=== PATIENT | female | born 1955 | race Caucasian/White ===

== ENCOUNTER 2018-04-26 10:08 | Observation (INO) ==
[2018-04-26 11:35] LABS: Hematocrit 42.1 % (35.0-46.0); Hemoglobin 14.5 gm/dL (11.6-15.3); Mean Corpuscular HGB Conc 34.3 % (32.0-36.0); Mean Corpuscular Hemoglobin 29.8 pg (27.0-34.0); Mean Corpuscular Volume 86.6 fL (80.0-100.0); Mean Platelet Volume 9.8 fL (7.0-11.0); Platelet Count 182 th/mm3 (150-450); Red Blood Count 4.86 mil/mm3 (4.00-5.30); Red Cell Distribution Width 14.1 % (11.6-17.2)
[2018-04-26 11:46] LABS: Chloride 106 meq/L (98-107); Potassium 4.5 meq/L (3.5-5.1); Sodium 141 meq/L (136-145)
[2018-04-26 11:49] LABS: Albumin 3.9 g/dL (3.4-5.0); Anion Gap 7 meq/L (5-15); Calcium 8.8 mg/dL (8.5-10.1); Carbon Dioxide 27.7 meq/L (21.0-32.0); Glucose,Random 139 mg/dL (74-106); Magnesium 2.2 mg/dL (1.5-2.5)
[2018-04-26 11:50] LABS: Blood Urea Nitrogen 14 mg/dL (7-18)
[2018-04-26 11:52] LABS: Alanine Aminotransferase 22 U/L (10-53); Aspartate Aminotransferase 22 U/L (15-37)
[2018-04-26 11:53] LABS: Glomerular Filtration Rate 56 mL/min (>89); Phosphorus 4.3 mg/dL (2.5-4.9)
[2018-04-26 11:54] LABS: Total Protein 6.7 g/dL (6.4-8.2)
[2018-04-26 11:55] LABS: Alkaline Phosphatase 75 U/L (45-117)
--- NOTE | 2018-04-26 12:00 | ED ---
HPI General Chief complaint: Dizziness Stated complaint: General weakness x 3 days Time Seen by Provider: 04/26/18 11:13 Source: patient, family, RN notes reviewed and old records reviewed Mode of arrival: ambulatory History of Present Illness HPI narrative: 63yF presenting with dyspnea, near-syncope, and generalized weakness/ fatigue. The patient has a history of breast CA and chemotherapy- induced CHF (reported EF <20%, s/p defibrillator placement 3 months ago); she [place] requiring thoracentesis. She says that over the past 2 days she's been having dyspnea ( worse than her baseline dyspnea) on both exertion and at rest, generalized weakness/ fatigue, feeling "like I'm going to pass out" (unrelated to position or activity), and intermittent palpitations. Also admits to tactile fevers/ chills but denies chest pain, vomiting, diarrhea, dysuria, or rash. Last chemo/ radiation in December or January, not currently on either treatment. Related Data Home Medications Medication Instructions Recorded Confirmed acetaminophen-codeine 1 tab PO Q6H PRN 02/12/18 04/26/18 [Tylenol-Codeine #3] aspirin 81 mg PO DAILY 02/12/18 04/26/18 potassium chloride 10 meq PO DAILY PRN 02/12/18 04/26/18 ranitidine HCl See Label Instructions .ROUTE 02/12/18 04/26/18 .COMPLEX PRN carvedilol 6.25 mg PO BID 04/06/18 04/26/18 cholecalciferol (vitamin D3) 2,000 unit PO DAILY 04/06/18 04/26/18 furosemide [Lasix] 20 mg PO BID PRN 04/06/18 04/26/18 sacubitril-valsartan [Entresto] 1 tab PO BID 04/06/18 04/26/18 docusate sodium [Colace] 100 mg PO DAILY 04/26/18 04/26/18 multivitamin 1 tab PO DAILY 04/26/18 04/26/18 Allergies Allergy/AdvReac Type Severity Reaction Status Date / Time cefaclor Allergy Severe CAN'T Verified 02/12/18 23:25 BREATHE Review of Systems ROS: all other systems reviewed are negative Constitutional Reports chills, Reports difficulty sleeping, Reports fatigue and Reports fever(s ) Eyes Denies blurry vision ENT Denies nasal congestion Cardiovascular Denies chest pain and Reports dyspnea Respiratory Reports dyspnea Gastrointestinal Denies nausea Genitourinary Denies dysuria Musculoskeletal Denies back pain Neurologic Denies confusion Psychiatric Denies confusion [facility] History History Provided By: Patient Medical History Medical History Port-A-Cath in place (Acute) History of chemotherapy (Acute) Hx of breast cancer (Acute) CHF (congestive heart failure) (Acute) Social History Social History Substance History: No History of Abuse Second Hand Smoke Exposure: No Smoking Status: Former smoker Tobacco Type: Cigarettes How Often Do You Have a Drink Containing Alcohol: Monthly or less Recent Travel in [facility] within the Last 8 Weeks: No Recent Out of Country Travel within the Last 8 Weeks: No Immunization History Tetanus Immunization: Unsure Hx Influenza Vaccine This Season: No Exam Const General: no acute distress and frail appearing [place]ENUT Head: normocephalic and atraumatic Face and sinus: normal facial exam Eyes General: appearance normal, both eyes and all related structures Pupils: PERRL Chest Other: Defibrillator present in right upper chest, port present in left upper chest Resp Effort & Inspection: normal respiratory effort Other: Lungs clear to auscultation bilaterally, no wheezing or rhonchi Cardio Rate: regular rate Rhythm: regular rhythm GI Inspection: non-distended Palpation: soft and nontender Skin General: no rashes or lesions noted Neuro General: alert, awake, oriented x3 and no focal motor deficits Extrem Other: Trace lower extremity edema bilaterally Psych Affect: normal affect Course Initial Documented Vital Signs Temperature 98.4 F 04/26/18 10:28 Pulse Rate 86 04/26/18 10:28 Respiratory Rate 20 04/26/18 10:28 Blood Pressure 117/56 L 04/26/18 10:28 Pulse Oximetry 98 04/26/18 10:28 Last Documented Vital Signs Temperature 98.4 F 04/26/18 10:28 Pulse Rate 77 04/26/18 11:23 Respiratory Rate 20 04/26/18 10:28 Blood Pressure 117/56 L 04/26/18 10:28 Pulse Oximetry 96 04/26/18 11:23 Medical Decision Making MDM Narrative Medical decision making narrative: Assessment: 63yF presenting with dyspnea, palpitations, near-syncope, weakness Plan: EKG and monitor CXR Labs Addendum: Patient's trop negative x 1, BNP 670, no effusions seen on CXR, labs otherwise unremarkable. Patient continues to have dyspnea and palpitations at rest while in the ED. She will need cardiac monitoring and further workup; she understands and agrees with plan. Case discussed with Dr. Eid of [facility]. Medical Screen Exam Complete: Yes Emergency Medical Condition: Yes Differential Diagnosis Differential Diagnosis: Differential diagnosis includes, but is not limited to: CHF exacerbation, electrolyte abnormality, dehydration, pleural effusion, pulmonary edema, arrhythmia Medical Records Medical records reviewed: Yes I reviewed the patient's medical records. Lab Data Lab results reviewed: Yes I reviewed the patient's lab results. Result diagrams: 04/26/18 11:15 04/26/18 11:15 Lab Results 04/26/18 04/26/18 04/26/18 Range/Units 11:15 11:15 11:15 CBC w Diff Slide review pending WBC 10.0 (4.0-11.0) th/mm3 RBC 4.86 (4.00-5.30) mil/mm3 Hgb 14.5 (11.6-15.3) gm/dL Hct 42.1 (35.0-46.0) % MCV 86.6 (80.0-100.0) fL MCH 29.8 (27.0-34.0) pg MCHC 34.3 (32.0-36.0) % RDW 14.1 (11.6-17.2) % Plt Count 182 (150-450) th/mm3 MPV 9.8 (7.0-11.0) fL WBC Differential Manual diff final Seg Neuts % (Manual) 77 H (16-70) % Lymphocytes % (Manual) 16 (9-44) % Monocytes % (Manual) 5 (0-8) % Eosinophils % (Manual) 2 (0-4) % Abs Neuts (Manual) 7.7 (1.8-7.7) th/mm3 Differential Comment . Platelet Estimate Normal (Normal) Platelet Morphology Normal (Normal) Sodium 141 (136-145) meq/L Potassium 4.5 (3.5-5.1) meq/L Chloride 106 (98-107) meq/L Carbon Dioxide 27.7 (21.0-32.0) meq/L Anion Gap 7 (5-15) meq/L BUN 14 (7-18) mg/dL Creatinine 1.00 (0.50-1.00) mg/dL Estimated GFR 56 L (>89) mL/min Random Glucose 139 H (74-106) mg/dL Calcium 8.8 (8.5-10.1) mg/dL Phosphorus 4.3 (2.5-4.9) mg/dL Magnesium 2.2 (1.5-2.5) mg/dL Total Bilirubin 1.4 H (0.2-1.0) mg/dL AST 22 (15-37) U/L ALT 22 (10-53) U/L Alkaline Phosphatase 75 (45-117) U/L Troponin I Less than 0.02 L (0.02-0.05) ng/mL B-Natriuretic Peptide 677 H (0-100) pg/mL Total Protein 6.7 (6.4-8.2) g/dL Albumin 3.9 (3.4-5.0) g/dL Imaging Data Radiologist's impression: Chest X-Ray 04/26/18 11:23 CONCLUSION: Negative chest for acute process. ECG Data Attestation: I personally reviewed and interpreted this ECG as follows: Interpretation: Rate: 75 BPM Rhythm: Sinus [place]: Normal Intervals: Normal intervals, no blocks, QTc 413 ms Q waves: III, V2 T waves: Flattened in aVL, III, aVF, V5-V6 ST segments: No elevations or depressions Impression: Non-specific EKG, no changes as compared to EKG from 02/12/2018. Discharge Plan Discharge Disposition Patient Disposition: 30 Still Patient Discharge Condition Condition: Stable Discharge Details Diagnosis: Near syncope, Palpitations, Dyspnea Physicians Team ED Provider: Zita Jimenez Primary Care Provider: Josué Garcia Rxs /Orders / Referrals /Forms Prescriptions: No Action furosemide [Lasix] 20 mg tablet 20 mg PO BID PRN (Reason: Edema) RF: 0 carvedilol 6.25 mg Tablet 6.25 mg PO BID RF: 0 cholecalciferol (vitamin D3) 2,000 unit Tablet 2,000 unit PO DAILY RF: 0 sacubitril-valsartan [Entresto] 24-26 mg Tablet 1 tab PO BID RF: 0 potassium chloride 10 mEq Tablet Extended Release 10 meq PO DAILY PRN (Reason: Edema) RF: 0 acetaminophen-codeine [Tylenol-Codeine #3] 300-30 mg Tablet 1 tab PO Q6H PRN (Reason: Acute Pain) RF: 0 aspirin 81 mg Tablet,Chewable 81 mg PO DAILY RF: 0 ranitidine HCl 150 mg Capsule See Label Instructions .ROUTE .COMPLEX PRN (Reason: gerd) RF: 0 multivitamin Tablet 1 tab PO DAILY RF: 0 docusate sodium [Colace] 100 mg Capsule 100 mg PO DAILY RF: 0 Status ED Status: With Doctor
--- NOTE | 2018-04-26 12:05 | XR ---
EXAM DATE: 04/26/2018 11:47 AM EDT AGE/SEX: 63 years / Female INDICATIONS: . Short of breath, cough CLINICAL DATA: This is the patient's initial encounter. Patient reports that signs and symptoms have been present for 2 days and indicates a pain score of 0/10. MEDICAL/SURGICAL HISTORY: Carcinoma, breast. Hypertension. . Pacemaker. Infusaport COMPARISON: HPO, CHEST 1V SINGLE AP, 02/12/2018. . FINDINGS: Pacemaker in good position. [id number] in good position. Lungs are clear. The heart and pulmonary vascularity are normal. The portion of the bony skeleton visualized is unremarkable. CONCLUSION: Negative chest for acute process. Electronically signed by: Siddhartha Ernst MD 04/26/2018 12:04 PM EDT
[2018-04-26 12:12] LABS: Eosinophils 2 % (0-4); Lymphocytes 16 % (9-44); Monocytes 5 % (0-8); Platelet Estimate Normal (Normal); Platelet Morphology Normal (Normal)
[2018-04-26] MEDS ORDERED: Acetaminophen/Codeine 300/30 MG Tablet PO ONE (13:09)
[2018-04-26] MEDS ORDERED: Acetaminophen 325 MG Tablet PO PRN (13:26)
[2018-04-26] MEDS ORDERED: Bisacodyl 10 MG Supp RECTAL PRN (13:26)
[2018-04-26] MEDS ORDERED: Famotidine 20 MG Tablet PO PRN (13:45)
[2018-04-26] MEDS ORDERED: Enoxaparin Inj 40 MG/0.4 ML Syringe SQ SCH (14:00)
[2018-04-26] MEDS ORDERED: Sod Chloride 0.9% Inj 1,000 ML IV.CONT SCH (14:00)
[2018-04-26 14:13] LABS: Bilirubin,Urine Negative (Negative); Clarity,Urine Clear (Clear); Color,Urine Yellow (Yellw/Straw); Glucose,Urine (UA) Negative (Negative); Leukocyte Esterase,Urine Negative (Negative); Nitrite,Urine Negative (Negative); Specific Gravity,Urine Less/Equal 1.005 (1.002-1.035); Urobilinogen,Urine 0.2 mg/dL (Less than 2)
[2018-04-26 14:24] LABS: Squamous Epithelial Cell,Urine 0-5 /hpf (0-5); WBC,Urine 0-5 /hpf (0-5)
--- NOTE | 2018-04-26 14:36 | ECG ---
Date Performed: 04/26/2018 Time Performed: 10:43:36 PTAGE: 63 years EKG: Sinus rhythm POSSIBLE LEFT ATRIAL ENLARGEMENT NONSPECIFIC T-WAVE ABNORMALITY BORDERLINE ECG Since the PREVIOUS TRACING , no significant change noted PREVIOUS TRACIN02/12/2018 22.14 DOCTOR: Marcie Espino Interpretating Date/Time 04/26/2018 14:31:15
--- NOTE | 2018-04-26 15:23 | P.HP ---
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 She presents to the emergency room because of near syncope. Started 2 days ago not feeling great saying she was not in tip top shape. Today she felt shaky, weak and not feeling well. States she was dizzy and almost passed out. She also had episodes of feeling hot then feeling cold. Also felt that she was more short of breath than usual. Occasionally she will have whitish phlegm. No recent medication changes she has been on Entresto and Coreg for the past 3 weeks. She has been using Lasix 3-4 times a week for the past 2 weeks to prevent her from weight gain. No UTI symptoms. Chest x-ray interpreted by me with no acute cardiopulmonary disease. Urinalysis unremarkable. EKG interpreted by me with SR nonspecific T-wave abnormality. When I walked into the room, patient was in the process of getting orthostatic vital signs and patient complaining of mild dizziness. Her blood pressure was stable but heart rate increased by at least 20 points. All other systems reviewed negative. Review of Systems All other systems reviewed negative except as stated in HPI PMFSH - History History Provided By: Patient - Medical History Medical History: Medical History (Last Updated 04/26/18 @ 15:49 by Lyndon Eid MD) Port-A-Cath in place (Acute) History of chemotherapy (Acute) Hx of breast cancer (Acute) CHF (congestive heart failure) (Acute) CVA (cerebral vascular accident) Diabetes HLD (hyperlipidemia) HTN (hypertension) - Surgical History Surgical History: Surgical History (Last Updated 04/26/18 @ 15:51 by Lyndon Eid MD) History of lumpectomy of right breast - Family History Family History: Family History (Last Updated 04/26/18 @ 15:51 by Lyndon Eid MD) Other No pertinent family history - Tobacco History Second Hand Smoke Exposure: No Smoking Status: Former smoker Tobacco Type: Cigarettes - Alcohol History How Often Do You Have a Drink Containing Alcohol: Monthly or less - Substance Use History Substance History: No History of Abuse - Travel History Recent Travel in the [place] Within the Last 8 Weeks: No Recent Travel Out of the Country Within the Last 8 Weeks: No - Immunization History Tetanus Immunization: Unsure Hx Influenza Vaccine This Season: No Medications and Allergies Active Medications: Active Medications Acetaminophen (Tylenol) 650 mg PO Q4H PRN PRN Reason: Temp > 100.4 Acetaminophen/Codeine Phosphate (Tylenol W/Cod #3) 1 tab PO Q6H PRN PRN Reason: Acute Pain Al Hydroxide/Mg Hydroxide (Milk Of Magnesia Liq) 30 ml PO Q12H PRN PRN Reason: Mild Constipation Aspirin (Aspirin Chew) 81 mg PO DAILY MELANY Bisacodyl (Dulcolax Supp) 10 mg RECTAL DAILY PRN PRN Reason: SEVERE CONSITIPATION Docusate Sodium (Colace) 100 mg PO DAILY MELANY Enoxaparin Sodium (Lovenox Inj) 40 mg SQ Q24H MELANY Famotidine (Pepcid) 20 mg PO BID PRN PRN Reason: HEARTBURN Sodium Chloride (Ns Inj) 1,000 mls @ 30 mls/hr IV.CONT .Q24H MELANY Last Infusion: 04/26/18 14:33 Dose: 30 mls/hr Lactulose (Lactulose Liq) 30 ml PO DAILY PRN PRN Reason: SEVERE CONSITIPATION Ondansetron HCl (Zofran Inj) 4 mg IV.PUSH Q6H PRN PRN Reason: NAUSEA OR VOMITING Sennosides (Senokot) 17.2 mg PO Q12H PRN PRN Reason: Moderate Constipation Sodium Chloride (Ns Flush) 2 ml IV.FLUSH UNSCH PRN PRN Reason: FLUSH AFTER USING IV ACCESS Allergies Allergy/AdvReac Type Severity Reaction Status Date / Time cefaclor Allergy Severe CAN'T Verified 02/12/18 23:25 BREATHE Home Medications Medication Instructions Recorded Confirmed Type acetaminophen-codeine 1 tab PO Q6H PRN 02/12/18 04/26/18 History [Tylenol-Codeine #3] aspirin 81 mg PO DAILY 02/12/18 04/26/18 History potassium chloride 10 meq PO DAILY PRN 02/12/18 04/26/18 History ranitidine HCl See Label Instructions .ROUTE 02/12/18 04/26/18 History .COMPLEX PRN carvedilol 6.25 mg PO BID 04/06/18 04/26/18 History cholecalciferol (vitamin D3) 2,000 unit PO DAILY 04/06/18 04/26/18 History furosemide [Lasix] 20 mg PO BID PRN 04/06/18 04/26/18 History sacubitril-valsartan [Entresto] 1 tab PO BID 04/06/18 04/26/18 History docusate sodium [Colace] 100 mg PO DAILY 04/26/18 04/26/18 History multivitamin 1 tab PO DAILY 04/26/18 04/26/18 History Exam Vital signs: Vital Signs 04/26/18 10:28 04/26/18 11:23 Temperature 98.4 F Pulse Rate 86 77 Respiratory Rate 20 Blood Pressure 117/56 L Pulse Oximetry 98 96 Intake & Output 04/25/18 04/26/18 04/26/18 18:59 06:59 18:59 Weight 57.6 kg Narrative: GENERAL: Well-developed, well-nourished in no distress SKIN: Warm and dry. HEAD: Atraumatic. Normocephalic. EYES: Pupils equal and round. No scleral icterus. No injection or drainage. ENT: No nasal bleeding or discharge. Mucous membranes pink and moist. NECK: Trachea midline. No JVD. CARDIOVASCULAR: Regular rate and rhythm. ICD on the right, port on the left chest with no signs of infection RESPIRATORY: No accessory muscle use. Clear to auscultation. Breath sounds equal bilaterally. GASTROINTESTINAL: Abdomen soft, non-tender, nondistended. MUSCULOSKELETAL: Extremities without clubbing, cyanosis but with bilateral lower extremity trace edema. No obvious deformities. NEUROLOGICAL: Awake and alert. No obvious cranial nerve deficits. Motor grossly within normal limits. Five out of 5 muscle strength in the arms and legs. Normal speech. PSYCHIATRIC: Appropriate mood and affect; insight and judgment normal. Results - Labs CBC & Chem 7: 04/26/18 11:15 04/26/18 11:15 Labs: Laboratory Results - last 24 hr 04/26/18 04/26/18 04/26/18 11:15 11:15 11:15 CBC w Diff Slide review pending WBC 10.0 RBC 4.86 Hgb 14.5 Hct 42.1 MCV 86.6 MCH 29.8 MCHC 34.3 RDW 14.1 Plt Count 182 MPV 9.8 WBC Differential Manual diff final Seg Neuts % (Manual) 77 H Lymphocytes % (Manual) 16 Monocytes % (Manual) 5 Eosinophils % (Manual) 2 Abs Neuts (Manual) 7.7 Differential Comment . Platelet Estimate Normal Platelet Morphology Normal Sodium 141 Potassium 4.5 Chloride 106 Carbon Dioxide 27.7 Anion Gap 7 BUN 14 Creatinine 1.00 Estimated GFR 56 L Random Glucose 139 H Calcium 8.8 Phosphorus 4.3 Magnesium 2.2 Total Bilirubin 1.4 H AST 22 ALT 22 Alkaline Phosphatase 75 Troponin I Less than 0.02 L B-Natriuretic Peptide 677 H Total Protein 6.7 Albumin 3.9 Ur Collection Type Urine Color Urine Clarity Urine pH Ur Specific [place] Urine Protein Urine Glucose (UA) Urine Ketones Urine Occult Blood Urine Nitrate Urine Bilirubin Urine Urobilinogen Ur Leukocyte Esterase Urine WBC Ur Squamous Epith Cells Micro UA Comment Ur Microscopic Review Urine Culture Comments 04/26/18 04/26/18 13:45 14:25 CBC w Diff WBC RBC Hgb Hct MCV MCH MCHC RDW Plt Count MPV WBC Differential Seg Neuts % (Manual) Lymphocytes % (Manual) Monocytes % (Manual) Eosinophils % (Manual) Abs Neuts (Manual) Differential Comment Platelet Estimate Platelet Morphology Sodium Potassium Chloride Carbon Dioxide Anion Gap BUN Creatinine Estimated GFR Random Glucose Calcium Phosphorus Magnesium Total Bilirubin AST ALT Alkaline Phosphatase Troponin I Less than 0.02 L B-Natriuretic Peptide Total Protein Albumin Ur Collection Type Clean catch Urine Color Yellow Urine Clarity Clear Urine pH 7.0 Ur Specific [place] Less/equal 1.005 Urine Protein Negative Urine Glucose (UA) Negative Urine Ketones Negative Urine Occult Blood Negative Urine Nitrate Negative Urine Bilirubin Negative Urine Urobilinogen 0.2 Ur Leukocyte Esterase Negative Urine WBC 0-5 Ur Squamous Epith Cells 0-5 Micro UA Comment Culture not ind Ur Microscopic Review Microscopic reviewed Urine Culture Comments Culture not ind - Imaging Impressions Chest X-Ray 04/26/18 11:23 CONCLUSION: Negative chest for acute process. Caprini VTE Risk Assessment Caprini VTE Risk Assessment: Moderate/High Risk (score >= 2) Caprini Risk Assessment Model: Point Value = 1 Point Value = 2 Point Value = 3 Point Value = 5 Age 41-60 Minor surgery BMI > 25 kg/m2 Swollen legs Varicose veins or History of unexplained or recurrent spontaneous Oral contraceptives or hormone replacement Sepsis (< 1 month) Serious lung disease, including pneumonia (< 1 month) Abnormal pulmonary function Acute myocardial infarction Congestive heart failure (< 1 month) History of inflammatory bowel disease Medical patient at bed rest Age 61-74 Arthroscopic surgery Major open surgery (> 45 min) Laparoscopic surgery (> 45 min) Malignancy Confined to bed (> 72 hours) Immobilizing plaster cast Central venous access Age >= 75 History of VTE Family history of VTE Factor V Leiden Prothrombin [id number] Lupus anticoagulant Anticardiolipin antibodies Elevated serum homocysteine Heparin-induced thrombocytopenia Other congenital or acquired thrombophilia Stroke (< 1 month) Elective arthroplasty Hip, pelvis, or leg fracture Acute spinal cord injury (< 1 month) Prophylaxis Regimen: Total Risk Factor Score Risk Level Prophylaxis Regimen 0-1 Low Early ambulation 2 Moderate Order ONE of the following: *Sequential Compression Device (SCD) *Heparin 5000 units SQ BID 3-4 Higher Order ONE of the following medications: *Heparin 5000 units SQ TID *Enoxaparin/Lovenox 40 mg SQ daily (WT < 150 kg, CrCl > 30 mL/min) *Enoxaparin/Lovenox 30 mg SQ daily (WT < 150 kg, CrCl > 10-29 mL/min) *Enoxaparin/Lovenox 30 mg SQ BID (WT < 150 kg, CrCl > 30 mL/min) AND/OR *Sequential Compression Device (SCD) 5 or more Highest Order ONE of the following medications: *Heparin 5000 units SQ TID (Preferred with Epidurals) *Enoxaparin/Lovenox 40 mg SQ daily (WT < 150 kg, CrCl > 30 mL/min) *Enoxaparin/Lovenox 30 mg SQ daily (WT < 150 kg, CrCl > 10-29 mL/min) *Enoxaparin/Lovenox 30 mg SQ BID (WT < 150 kg, CrCl > 30 mL/min) AND *Sequential Compression Device (SCD) Assessment and Plan - Plan This is a 63-year-old female with a history of chemotherapy-induced systolic heart failure EF 20% status post AICD, hypertension, hyperlipidemia, diet- controlled diabetes mellitus, CVA and right breast cancer status post lumpectomy and lymph node dissection and chemotherapy. She presents to the emergency room because of near syncope. Near syncope. She is mildly orthostatic. Continue gentle IV hydration for a total of 500 cc and hold hypertensives today. Repeat orthostatics in the morning. Monitor for fluid overload. Obtain head CT and blood culture. Follow -up urine drug screen. Interrogate ICD DVT prophylaxis with SCD and Lovenox Discussed Condition With: pt and family Discharge Planning: PT judit
--- NOTE | 2018-04-26 20:01 | CT ---
EXAM DATE: 04/26/2018 7:49 PM EDT AGE/SEX: 63 years / Female INDICATIONS: Cephalgia, generalized weakness, and dizziness. CLINICAL DATA: This is the patient's initial encounter. Patient reports that signs and symptoms have been present for 3 days and indicates a pain score of 4/10. MEDICAL/SURGICAL HISTORY: Congestive heart failure. Cerebrovascular disease. Diabetes. Hypertens ion. Breast cancer. . Right breast lumpectomy. RADIATION DOSE: 46.84 CTDI (mGy) COMPARISON: CT head 03/2015. TECHNIQUE: CT of the head without contrast. Using automated exposure control and adjustment of the mA and/or kV according to patient size, radiation dose was kept as low as reasonably achievable to ob tain optimal diagnostic quality images. DICOM format image data is available electronically for revi ew and comparison. FINDINGS: There is no evidence for intracranial hemorrhage, mass effect, mass lesions, edema, or extra-axial fl uid collections. The visualized bony structures appear intact. The ventricles are normal size for t he patient's age. There are no signs of acute infarction for technique. CONCLUSION: Unremarkable study. . Electronically signed by: Toni Martinez MD 04/26/2018 8:00 PM EDT
[2018-04-26] MEDS: Acetaminophen/Codeine 300/30 MG Tablet PO PRN (20:22)
[2018-04-27 03:09] LABS: Amphetamine Screen,Urine Neg (Neg)
[2018-04-27 03:17] LABS: Barbiturate Screen,Urine Neg (Neg)
[2018-04-27 03:20] LABS: Cannabinoid Screen,Urine Neg (Neg)
[2018-04-27 03:22] LABS: Cocaine Screen,Urine Neg (Neg)
[2018-04-27 03:24] LABS: Opiate Screen,Urine Pos (Neg)
[2018-04-27 08:52] VITALS: BP 106/52; PULSE 87; TEMP 97.7; O2SAT 96
[2018-04-27] MEDS ORDERED: Docusate Sodium 100 MG Capsule PO SCH (09:00)
--- NOTE | 2018-04-27 09:26 | P.PN ---
Subjective Interval history: Follow-up orthostasis. Today she feels better able to get out of bed to use the restroom without symptoms. Denies shortness of breath. Physical Exam Vital signs: Vital Signs 04/26/18 10:28 04/26/18 11:23 04/26/18 15:37 Temperature 98.4 F 98.1 F Pulse Rate 86 77 80 Respiratory Rate 20 20 Blood Pressure 117/56 L 110/57 L Pulse Oximetry 98 96 94 L 04/26/18 20:00 04/27/18 00:00 04/27/18 08:00 Temperature 98.7 F 98.6 F 97.7 F Pulse Rate 81 80 87 Respiratory Rate 18 18 16 Blood Pressure 113/62 121/71 106/52 L Pulse Oximetry 97 99 96 Intake & Output 04/26/18 04/27/18 04/27/18 18:59 06:59 18:59 Intake Total 120 / 120 Output Total 200 / 200 Balance 120 / 120 -200 / -200 Weight 56.5 kg 56.9 kg Intake: Oral 120 / 120 Output: Urine 200 / 200 Other: # Voids 1 Weight On Admission 56.5 kg Narrative: GENERAL: Well-developed, well-nourished in no distress SKIN: Warm and dry. CARDIOVASCULAR: Regular rate and rhythm. ICD on the right, port on the left chest with no signs of infection RESPIRATORY: No accessory muscle use. Clear to auscultation. Breath sounds equal bilaterally. GASTROINTESTINAL: Abdomen soft, non-tender, nondistended. MUSCULOSKELETAL: Extremities without clubbing, cyanosis but with bilateral lower extremity trace edema. No obvious deformities. NEUROLOGICAL: Awake and alert. No obvious cranial nerve deficits. Motor grossly within normal limits. Five out of 5 muscle strength in the arms and legs. Normal speech. PSYCHIATRIC: Appropriate mood and affect; insight and judgment normal. Results - Labs CBC & Chem 7: 04/26/18 11:15 04/26/18 11:15 Laboratory Results - last 24 hr 04/26/18 04/26/18 04/26/18 11:15 11:15 11:15 CBC w Diff Slide review pending WBC 10.0 RBC 4.86 Hgb 14.5 Hct 42.1 MCV 86.6 MCH 29.8 MCHC 34.3 RDW 14.1 Plt Count 182 MPV 9.8 WBC Differential Manual diff final Seg Neuts % (Manual) 77 H Lymphocytes % (Manual) 16 Monocytes % (Manual) 5 Eosinophils % (Manual) 2 Abs Neuts (Manual) 7.7 Differential Comment . Platelet Estimate Normal Platelet Morphology Normal Sodium 141 Potassium 4.5 Chloride 106 Carbon Dioxide 27.7 Anion Gap 7 BUN 14 Creatinine 1.00 Estimated GFR 56 L Random Glucose 139 H Calcium 8.8 Phosphorus 4.3 Magnesium 2.2 Total Bilirubin 1.4 H AST 22 ALT 22 Alkaline Phosphatase 75 Troponin I Less than 0.02 L B-Natriuretic Peptide 677 H Total Protein 6.7 Albumin 3.9 Ur Collection Type Urine Color Urine Clarity Urine pH Ur Specific [place] Urine Protein Urine Glucose (UA) Urine Ketones Urine Occult Blood Urine Nitrate Urine Bilirubin Urine Urobilinogen Ur Leukocyte Esterase Urine WBC Ur Squamous Epith Cells Micro UA Comment Ur Microscopic Review Urine Culture Comments Urine Opiates Screen Ur Barbiturates Screen Ur Amphetamines Screen U Benzodiazepines Scrn Urine Cocaine Screen U Cannabinoids Screen 04/26/18 04/26/18 04/27/18 13:45 14:25 02:53 CBC w Diff WBC RBC Hgb Hct MCV MCH MCHC RDW Plt Count MPV WBC Differential Seg Neuts % (Manual) Lymphocytes % (Manual) Monocytes % (Manual) Eosinophils % (Manual) Abs Neuts (Manual) Differential Comment Platelet Estimate Platelet Morphology Sodium Potassium Chloride Carbon Dioxide Anion Gap BUN Creatinine Estimated GFR Random Glucose Calcium Phosphorus Magnesium Total Bilirubin AST ALT Alkaline Phosphatase Troponin I Less than 0.02 L B-Natriuretic Peptide Total Protein Albumin Ur Collection Type Clean catch Urine Color Yellow Urine Clarity Clear Urine pH 7.0 Ur Specific [place] Less/equal 1.005 Urine Protein Negative Urine Glucose (UA) Negative Urine Ketones Negative Urine Occult Blood Negative Urine Nitrate Negative Urine Bilirubin Negative Urine Urobilinogen 0.2 Ur Leukocyte Esterase Negative Urine WBC 0-5 Ur Squamous Epith Cells 0-5 Micro UA Comment Culture not ind Ur Microscopic Review Microscopic reviewed Urine Culture Comments Culture not ind Urine Opiates Screen Pos H Ur Barbiturates Screen Neg Ur Amphetamines Screen Neg U Benzodiazepines Scrn Neg Urine Cocaine Screen Neg U Cannabinoids Screen Neg - Imaging Impressions Head CT 04/26/18 00:00 CONCLUSION: Unremarkable study. . Chest X-Ray 04/26/18 11:23 CONCLUSION: Negative chest for acute process. 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 She presents to the emergency room because of near syncope. Near syncope. She is mildly orthostatic from dehydration(meds, increased activity recently moved and hot weather). Head CT unremarkable. She feels better today status post gentle IV hydration. Repeat orthostatics today if negative will restart Entresto and coreg. Interrogate ICD and follow-up blood culture. She remained stable with unremarkable ICD interrogation we will discharge home later today. DVT prophylaxis with SCD and Lovenox Discharge Planning: Discharge patient to home Condition on discharge: Improved Regular Diet as tolerated Ad Neeta activity no driving Rx written: None Follow-up with primary care physician, cardiology and oncology
[2018-04-27] MEDS: Acetaminophen/Codeine 300/30 MG Tablet PO PRN (09:54)
[2018-04-27] MEDS ORDERED: Carvedilol 6.25 MG Tablet PO SCH (10:00)
[2018-04-27 10:35] VITALS: RESP 20
--- NOTE | 2018-04-27 11:37 | ECG ---
Date Performed: 04/26/2018 Time Performed: 14:24:55 PTAGE: 63 years EKG: Sinus rhythm POSSIBLE LEFT ATRIAL ENLARGEMENT NONSPECIFIC T-WAVE ABNORMALITY BORDERLINE ECG Since the PREVIOUS TRACING , no significant change noted PREVIOUS TRACIN04/26/2018 10.43 DOCTOR: Marcie Espino Interpretating Date/Time 04/27/2018 11:36:27
== END 2018-04-27 12:17 | disposition home or self-care (01) ==
LOC: PHED 10:08 → PHEDA 10:08 → PH3 14:07
PROVIDERS: ADMIT Internal Medicine; ATTEND Internal Medicine
DX: E78.5 Hyperlipidemia, unspecified; Z86.73 Personal history of transient ischemic attack (TIA), and cerebral infarction without residual deficits; Z79.82 Long term (current) use of aspirin; R06.00 Dyspnea, unspecified; R55 Syncope and collapse; Z85.3 Personal history of malignant neoplasm of breast; R00.2 Palpitations; Z92.21 Personal history of antineoplastic chemotherapy; I50.22 Chronic systolic (congestive) heart failure; E11.9 Type 2 diabetes mellitus without complications; Z95.810 Presence of automatic (implantable) cardiac defibrillator; I11.0 Hypertensive heart disease with heart failure; F17.210 Nicotine dependence, cigarettes, uncomplicated

== ENCOUNTER 2018-07-18 20:39 | Observation (INO) ==
--- NOTE | 2018-07-18 21:32 | ED ---
HPI General Chief Complaint: Arrhythmia / Palpitations Stated Complaint: SOB/Nausea/Palp Time Seen by Provider: 07/18/18 21:15 Source: patient Mode of arrival: ambulatory Limitations: no limitations History of Present Illness HPI narrative: 63-year-old female presents to the emergency department for complaint of not feeling well since 8 PM this evening. Patient states she has continued her typical routine of activity and dietary intake. Patient does have history of previous breast cancer status post chemotherapy and radiation therapy with sequela of cardiomyopathy and low ejection fraction of 20% requiring AICD/PM placement in January 2018. Patient has mild bouts of recurrent exacerbation of CHF but infrequently. Patient states she has had large pleural effusions in the past requiring pleurocentesis. Patient does not complain of shortness of breath but states that she does not feel well; has felt shaky, with possible palpitations, with 8/10 head pressure 8/10 chest discomfort and previously at home had 8/10 abdominal discomfort that has now resolved. Patient denies "pain reports "only discomfort". No referred pain to the neck jaw back shoulder or arm. No orthopnea or PND. Patient denies any peripheral edema of the upper extremities or lower extremities. Patient denies any fever but has been experiencing chills with some myalgias and arthralgias. Patient has not had the flu vaccine. Patient is very concerned that maybe she drank too much water or not enough water or had too much food or not enough food. Patient is also treated for borderline diabetes/hyperglycemia, hypertension, dyslipidemia, previous CVA, and is also undergone breast lumpectomy and previous pelvic surgery regarding history of endometriosis and port-a-cath placement. Patient denies any dysuria frequency urgency flank pain or hematuria. Patient denies any nausea vomiting diarrhea or constipation. Patient has had no change in her medications which include Entresto for history of CHF. Patient denies reported pleuritic chest pain patient reports that she has no pain. Patient is taken no medications for her discomfort. Patient is unable to identify exacerbating or alleviating factors for her discomfort. Patient states she felt shaky and chilled at home. Patient states since arriving here and now that her antianxiety oral medication has taken effect patient took Ativan prior to arrival to the emergency department she feels somewhat improved. complaint: Reports "heart racing" and palpitations Onset (ago): hour(s) Time: 22:00 Duration: constant Severity: similar to previous episodes Context: Reports occurred during rest; Denies AICD discharge, awoke with symptoms, recent drug use and change in medication Arrhythmia history: Reports AICD; Denies atrial fibrillation, SVT, on anti- coagulants, pacemaker, history of ablation and history of electrical cardioversion Associated symptoms: Reports chest pain (patient states "discomfort" denies "pain"), nausea and anxiety; Denies shortness of breath, syncope, near-syncope, vomiting, diaphoresis, cough, paresthesias, feeling of impending doom and muscle cramps Treatments prior to arrival: Denies vagal maneuvers, propafenone, beta-ethan, calcium channel ethan, adenosine, amiodarone and cardioversion Related Data Home Medications Medication Instructions Recorded Confirmed aspirin 81 mg PO DAILY 02/12/18 07/18/18 potassium chloride 10 meq PO DAILY PRN 02/12/18 07/18/18 carvedilol 6.25 mg PO BID 04/06/18 07/18/18 cholecalciferol (vitamin D3) 2,000 unit PO DAILY 04/06/18 07/18/18 furosemide [Lasix] 20 mg PO BID PRN 04/06/18 07/18/18 sacubitril-valsartan [Entresto] 1 tab PO BID 04/06/18 07/18/18 multivitamin 1 tab PO DAILY 04/26/18 07/18/18 diazepam [Valium] 1 tab PO DAILY 05/21/18 07/18/18 lorazepam [Ativan] 1 mg PO DIRECTED PRN 05/24/18 07/18/18 atorvastatin 20 mg PO QPM 07/18/18 07/18/18 Previous Rx's Medication Instructions Recorded lorazepam [Ativan] 1 mg PO QID PRN #12 tab 05/24/18 Allergies Allergy/AdvReac Type Severity Reaction Status Date / Time cefaclor Allergy Severe CAN'T Verified 07/18/18 20:46 BREATHE Review of Systems ROS: all other systems reviewed are negative [facility] Medical History Medical History Port-A-Cath in place (Acute) History of chemotherapy (Acute) Hx of breast cancer (Acute) CHF (congestive heart failure) (Acute) CVA (cerebral vascular accident) (Acute) Diabetes (Acute) HLD (hyperlipidemia) (Acute) HTN (hypertension) (Acute) Surgical History Surgical History AICD (automatic cardioverter/defibrillator) present (Acute) H/O abdominal surgery (Acute) History of lumpectomy of right breast (Acute) History of tonsillectomy (Acute) Family History Family History Other No pertinent family history Social History Social History Substance History: No History of Abuse Second Hand Smoke Exposure: No Smoking Status: Former smoker Tobacco Type: Cigarettes How Often Do You Have a Drink Containing Alcohol: Never Recent Travel in [facility] within the Last 8 Weeks: No Recent Out of Country Travel within the Last 8 Weeks: No Immunization History Tetanus Immunization: Unsure Exam Narrative Exam Narrative: GENERAL: Well-nourished, well-developed patient. No acute distress no respiratory distress appears mildly anxious SKIN: Focused skin assessment warm/dry. HEAD: Normocephalic. EYES: No scleral icterus. No injection or drainage. NECK: Supple, trachea midline. No JVD or lymphadenopathy. CARDIOVASCULAR: Regular rate and rhythm without murmurs, gallops, or rubs. RESPIRATORY: Breath sounds equal bilaterally. No accessory muscle use. Lung sounds clear to auscultation bilaterally no rales wheezes or rhonchi. GASTROINTESTINAL: Abdomen soft, non-tender, nondistended. MUSCULOSKELETAL: No cyanosis, or edema. Radial and dorsalis pedis pulses 2+ to palpation bilaterally. BACK: Nontender without obvious deformity. No CVA tenderness. Course Initial Documented Vital Signs Temperature 98.7 F 07/18/18 20:44 Pulse Rate 100 H 07/18/18 20:44 Respiratory Rate 20 07/18/18 20:44 Blood Pressure 146/63 H 07/18/18 20:44 Pulse Oximetry 100 07/18/18 20:44 Last Documented Vital Signs Temperature 98.7 F 07/18/18 20:44 Pulse Rate 68 07/18/18 22:16 Respiratory Rate 16 07/18/18 22:16 Blood Pressure 99/56 L 07/18/18 22:16 Pulse Oximetry 97 07/18/18 22:16 Medical Decision Making MDM Narrative Medical decision making narrative: 63-year-old female with history of congestive heart failure presents to the emergency department stating she does not feel well for approximate hour and a half with head discomfort chest discomfort and transient abdominal discomfort. Patient is taken no medications prior to arrival to the emergency department except Ativan. Patient states she feels improved after taking Ativan but still feels shaky although she has had a decreased shakiness and chilling since having blankets placed. Patient denies fever. Patient was noted to have temp sure within normal range in triage however heart rate was 100 bpm. Patient placed on cardiac technologist with continuous pulse oximetry IV access obtained specimens collected and sent for resulting EKG and chest x-ray ordered. At 11:30 PM patient feels well is aware of lab results that are grossly within normal limits except for mild renal insufficiency which seems to be slightly worse in comparison lab. Patient's EKG is sinus rhythm with no acute ST elevation injury pattern or ectopy does show evidence of previous age- indeterminate QS septally with no acute ST elevation. Patient's heart rate is 72. Troponin I is found to be less than 0.02. CHEST X-RAY: No infiltrate, pneumothorax or mediastinal widening. Shows no acute process lungs are clear to auscultation. Patient has no orthopnea or PND or dyspnea. Patient states that without any patient intervention all of her symptoms have resolved. Plan is to obtain a delta troponin and if this is an acceptable range and not elevated to discharge patient to home and encouraged mild increase in fluid hydration and close follow-up with her managing physician. Patient is agreeable to this states she feels completely well and would like to be discharged. Medical Screen Exam Complete: Yes Emergency Medical Condition: Yes Lab Data Result diagrams: 07/18/18 21:47 07/18/18 21:47 Lab Results 07/18/18 07/18/18 07/18/18 Range/Units 21:47 21:47 21:47 CBC w Diff Auto diff final WBC 6.1 (4.0-11.0) th/mm3 RBC 4.18 (4.00-5.30) mil/mm3 Hgb 12.7 (11.6-15.3) gm/dL Hct 37.4 (35.0-46.0) % MCV 89.4 (80.0-100.0) fL MCH 30.5 (27.0-34.0) pg MCHC 34.0 (32.0-36.0) % RDW 13.1 (11.6-17.2) % Plt Count 177 (150-450) th/mm3 MPV 9.8 (7.0-11.0) fL Neut % (Auto) 70.9 H (16.0-70.0) % Lymph % (Auto) 18.2 (9.0-44.0) % [place] % (Auto) 7.5 (0.0-8.0) % Eos % (Auto) 2.6 (0.0-4.0) % Baso % (Auto) 0.8 (0.0-2.0) % Neut # (Auto) 4.2 (1.8-7.7) th/mm3 Lymph # (Auto) 1.1 (1.0-4.8) th/mm3 [place] # (Auto) 0.5 (0.0-0.9) th/mm3 Eos # (Auto) 0.2 (0.0-0.4) th/mm3 Baso # (Auto) 0.0 (0.0-0.2) th/mm3 WBC Differential . Differential Comment . PT 10.8 (9.8-11.6) sec INR 1.1 Ratio APTT 27.2 (23.4-31.7) sec Sodium 136 (136-145) meq/L Potassium 3.6 (3.5-5.1) meq/L Chloride 100 (98-107) meq/L Carbon Dioxide 28.6 (21.0-32.0) meq/L Anion Gap 7 (5-15) meq/L BUN 22 H (7-18) mg/dL Creatinine 1.20 H (0.50-1.00) mg/dL Estimated GFR 45 L (>89) mL/min Random Glucose 156 H (74-106) mg/dL Calcium 8.1 L (8.5-10.1) mg/dL Magnesium 2.2 (1.5-2.5) mg/dL Total Bilirubin 1.3 H (0.2-1.0) mg/dL AST 19 (15-37) U/L ALT 23 (10-53) U/L Alkaline Phosphatase 74 (45-117) U/L Total Creatine Kinase 43 (26-192) U/L Troponin I Less than 0.02 L (0.02-0.05) ng/mL Total Protein 6.4 (6.4-8.2) g/dL Albumin 3.6 (3.4-5.0) g/dL Lipase 127 (73-393) U/L Urine Color (Yellw/Straw) Urine Clarity (Clear) Urine pH (5.0-8.5) Ur Specific [place] (1.002-1.035) Urine Protein (Neg-Trace) mg/dL Urine Glucose (UA) (Negative) mg/dL Urine Ketones (Negative) mg/dL Urine Occult Blood (Negative) Urine Nitrate (Negative) Urine Bilirubin (Negative) Urine Urobilinogen (Less than 2) mg/dL Ur Leukocyte Esterase (Negative) Urine WBC (0-5) /hpf Ur Squamous Epith Cells (0-5) /hpf Micro UA Comment Ur Microscopic Review Urine Culture Comments 07/18/18 07/18/18 07/19/18 Range/Units 23:10 23:30 02:33 CBC w Diff WBC (4.0-11.0) th/mm3 RBC (4.00-5.30) mil/mm3 Hgb (11.6-15.3) gm/dL Hct (35.0-46.0) % MCV (80.0-100.0) fL MCH (27.0-34.0) pg MCHC (32.0-36.0) % RDW (11.6-17.2) % Plt Count (150-450) th/mm3 MPV (7.0-11.0) fL Neut % (Auto) (16.0-70.0) % Lymph % (Auto) (9.0-44.0) % [place] % (Auto) (0.0-8.0) % Eos % (Auto) (0.0-4.0) % Baso % (Auto) (0.0-2.0) % Neut # (Auto) (1.8-7.7) th/mm3 Lymph # (Auto) (1.0-4.8) th/mm3 [place] # (Auto) (0.0-0.9) th/mm3 Eos # (Auto) (0.0-0.4) th/mm3 Baso # (Auto) (0.0-0.2) th/mm3 WBC Differential Differential Comment PT (9.8-11.6) sec INR Ratio APTT (23.4-31.7) sec Sodium (136-145) meq/L Potassium (3.5-5.1) meq/L Chloride (98-107) meq/L Carbon Dioxide (21.0-32.0) meq/L Anion Gap (5-15) meq/L BUN (7-18) mg/dL Creatinine (0.50-1.00) mg/dL Estimated GFR (>89) mL/min Random Glucose (74-106) mg/dL Calcium (8.5-10.1) mg/dL Magnesium (1.5-2.5) mg/dL Total Bilirubin (0.2-1.0) mg/dL AST (15-37) U/L ALT (10-53) U/L Alkaline Phosphatase (45-117) U/L Total Creatine Kinase 40 (26-192) U/L Troponin I 0.03 0.02 (0.02-0.05) ng/mL Total Protein (6.4-8.2) g/dL Albumin (3.4-5.0) g/dL Lipase (73-393) U/L Urine Color Yellow (Yellw/Straw) Urine Clarity Clear (Clear) Urine pH 6.0 (5.0-8.5) Ur Specific [place] Less/equal 1.005 (1.002-1.035) Urine Protein Negative (Neg-Trace) mg/dL Urine Glucose (UA) Negative (Negative) mg/dL Urine Ketones Negative (Negative) mg/dL Urine Occult Blood Negative (Negative) Urine Nitrate Negative (Negative) Urine Bilirubin Negative (Negative) Urine Urobilinogen 0.2 (Less than 2) mg/dL Ur Leukocyte Esterase Negative (Negative) Urine WBC 0-5 (0-5) /hpf Ur Squamous Epith Cells 0-5 (0-5) /hpf Micro UA Comment Culture not ind Ur Microscopic Review Microscopic reviewed Urine Culture Comments Culture not ind Imaging Data Radiologist's impression: Chest X-Ray 07/18/18 21:15 CONCLUSION: No acute cardiopulmonary disease. Discharge Plan Discharge Disposition Patient Disposition: ED Admit(ED Internal Use Only) Discharge Condition Condition: Stable Discharge Order Discharge Orders: ED Use Only Admit Order (Routine); Ordered 07/19/18 Ordered By: Melissa Sullivan Discharge Details Diagnosis: Chest pain Physicians Team ED Provider: Melissa Sullivan Primary Care Provider: Josué Garcia Attending Provider: Hesham Rodas Discharge Interventions Interventions: ED Discharge Assessment Last Done: 07/19/18 03:00 Status ED Status: Admitted Observation Patient
--- NOTE | 2018-07-18 21:45 | XR ---
EXAM DATE: 07/18/2018 9:41 PM EST AGE/SEX: 63 years / Female INDICATIONS: Chest pressure and shortness of breath. CLINICAL DATA: This is the patient's initial encounter. Patient reports that signs and symptoms have been present for 1 day and indicates a pain score of 0/10. MEDICAL/SURGICAL HISTORY: Carcinoma, breast. Congestive heart failure. Pacemaker. Defibrillat or. Infusaport. COMPARISON: [facility], CHEST 1V SINGLE AP, 05/21/2018. . FINDINGS: The lungs are clear without infiltrate, nodule, or mass. There is no appreciable pleural effusion fo r technique. Heart and mediastinum are unremarkable. Left IJ [id number] is present with tip over lapping the expected region of the SVC. Right subclavian pacer wires are present with tips in the ri ght atrium and right ventricle. CONCLUSION: No acute cardiopulmonary disease. Electronically signed by: Toni Martinez MD Board Certified Radiologist 07/18/2018 9:43 PM EST
[2018-07-18 21:56] LABS: Baso % (Auto) 0.8 % (0.0-2.0); Eos # (Auto) 0.2 th/mm3 (0.0-0.4); Eos % (Auto) 2.6 % (0.0-4.0); Hematocrit 37.4 % (35.0-46.0); Hemoglobin 12.7 gm/dL (11.6-15.3); Lymph # (Auto) 1.1 th/mm3 (1.0-4.8); Lymph % (Auto) 18.2 % (9.0-44.0); Mean Corpuscular Hemoglobin 30.5 pg (27.0-34.0); Mean Corpuscular Volume 89.4 fL (80.0-100.0); Mean Platelet Volume 9.8 fL (7.0-11.0); Mono # (Auto) 0.5 th/mm3 (0.0-0.9); Mono % (Auto) 7.5 % (0.0-8.0); Neut # (Auto) 4.2 th/mm3 (1.8-7.7); Neut % (Auto) 70.9 % (16.0-70.0); Platelet Count 177 th/mm3 (150-450); Red Blood Count 4.18 mil/mm3 (4.00-5.30); Red Cell Distribution Width 13.1 % (11.6-17.2); White Blood Count 6.1 th/mm3 (4.0-11.0)
[2018-07-18 22:04] LABS: Chloride 100 meq/L (98-107); Potassium 3.6 meq/L (3.5-5.1); Sodium 136 meq/L (136-145)
[2018-07-18 22:07] LABS: Calcium 8.1 mg/dL (8.5-10.1)
[2018-07-18 22:08] LABS: Albumin 3.6 g/dL (3.4-5.0); Anion Gap 7 meq/L (5-15); Blood Urea Nitrogen 22 mg/dL (7-18); Carbon Dioxide 28.6 meq/L (21.0-32.0); Glucose,Random 156 mg/dL (74-106); Lipase 127 U/L (73-393); Magnesium 2.2 mg/dL (1.5-2.5)
[2018-07-18 22:09] LABS: Activated Partial Thrombo Time 27.2 sec (23.4-31.7); INR 1.1 Ratio; Prothrombin Time 10.8 sec (9.8-11.6)
[2018-07-18 22:10] LABS: Alanine Aminotransferase 23 U/L (10-53); Aspartate Aminotransferase 19 U/L (15-37)
[2018-07-18 22:11] LABS: Glomerular Filtration Rate 45 mL/min (>89)
[2018-07-18 22:12] LABS: Total Protein 6.4 g/dL (6.4-8.2)
[2018-07-18 22:13] LABS: Alkaline Phosphatase 74 U/L (45-117)
[2018-07-18 22:20] LABS: Creatine Kinase 43 U/L (26-192)
[2018-07-18 23:18] LABS: Bilirubin,Urine Negative (Negative); Clarity,Urine Clear (Clear); Color,Urine Yellow (Yellw/Straw); Glucose,Urine (UA) Negative (Negative); Leukocyte Esterase,Urine Negative (Negative); Nitrite,Urine Negative (Negative); Specific Gravity,Urine Less/Equal 1.005 (1.002-1.035); Urobilinogen,Urine 0.2 mg/dL (Less than 2)
[2018-07-18 23:27] LABS: Squamous Epithelial Cell,Urine 0-5 /hpf (0-5); WBC,Urine 0-5 /hpf (0-5)
[2018-07-19 03:00] LABS: Troponin I 0.02 ng/mL (0.02-0.05)
[2018-07-19] MEDS: LORazepam 1 MG Tablet PO PRN ×2 (03:44→23:26)
[2018-07-19 05:18] LABS: Creatine Kinase 50 U/L (26-192)
--- NOTE | 2018-07-19 07:50 | P.HP ---
History of Present Illness Primary Care Physician: Josué Garcia Chief Complaint: Chest heaviness History of Present Illness: This is a 63-year-old female patient with a known medical history of breast cancer s/p chemotherapy and radiation with subsequent cardiomyopathy who presented to the ED with complaints of chest heaviness. Patient states that around 8 PM last evening while resting she noticed a chest heaviness that was located in the midsternal area and associated with nausea as well as shortness of breath. She states the pain was rated an 8/10 at its worse on pain scale, and worsened over the night which prompted her presentation to the ED. Patient does have a history of breast cancer, began chemotherapy in April 2017 and the last treatment was in October of this year, underwent lumpectomy in September 2017. 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 At that time patient reports undergoing an angiogram as well as a thoracentesis for pleural effusion. Follows with Dr. Gibson, cardiology, last seen 1 week ago with no changes to her medications. Per patient report, plan is to repeat echocardiogram next year due to insurance reasons. Denies ever undergoing a cardiac stress test in the past. Does have hyperlipidemia for which she takes Atorvastatin. It should be noted that the patient also recently moved from [place] with her daughter and has established with Dr. Lindsey, oncologist. Plan is for a repeat PET scan next week. Denies any recent illness including fever, headache, shortness of breath, abdominal pain, nausea, vomiting, diarrhea or dysuria. - Diagnosis (1) Palpitations (2) Chest pain (3) CHF (congestive heart failure) Review of Systems All other systems reviewed negative except as stated in HPI PMFSH - History History Provided By: Patient - Medical History Medical History: Medical History (Last Reviewed 07/19/18 @ 09:24 by Roxanne Momin) Port-A-Cath in place (Acute) History of chemotherapy (Acute) Hx of breast cancer (Acute) CHF (congestive heart failure) (Acute) CVA (cerebral vascular accident) Diabetes HLD (hyperlipidemia) HTN (hypertension) - Surgical History Surgical History: Surgical History (Last Reviewed 07/19/18 @ 09:24 by Roxanne Momin) AICD (automatic cardioverter/defibrillator) present H/O abdominal surgery History of lumpectomy of right breast History of tonsillectomy - Family History Family History: Family History (Last Reviewed 07/19/18 @ 09:24 by Roxanne Momin) Other No pertinent family history - Social History I have reviewed the patient's Social History: Yes - Tobacco History Second Hand Smoke Exposure: No Tobacco Use In Past 30 Days: No Smoking Status: Former smoker Tobacco Type: Cigarettes - Alcohol History How Often Do You Have a Drink Containing Alcohol: Never - Substance Use History Substance History: No History of Abuse - Travel History Recent Travel in the [place] Within the Last 8 Weeks: No Recent Travel Out of the Country Within the Last 8 Weeks: No - Immunization History Tetanus Immunization: Unsure Medications and Allergies Active Medications: Active Medications Aspirin (Aspirin Chew) 81 mg PO DAILY MELANY Carvedilol (Coreg) 6.25 mg PO BID MELANY Lorazepam (Ativan) 1 mg PO Q12H PRN PRN Reason: ANXIETY AND/OR AGITATION Last Admin: 07/19/18 03:44 Dose: 1 mg Sacubitril/Valsartan (Entresto 24 Mg/26 Mg Tablet) 1 tab PO BID MELANY Sodium Chloride (Ns Flush) 2 ml IV.FLUSH BID MELANY Sodium Chloride (Ns Flush) 2 ml IV.FLUSH PRN PRN PRN Reason: FLUSH AFTER USING IV ACCESS Allergies Allergy/AdvReac Type Severity Reaction Status Date / Time cefaclor Allergy Severe CAN'T Verified 07/18/18 20:46 BREATHE Home Medications Medication Instructions Recorded Confirmed Type aspirin 81 mg PO DAILY 02/12/18 07/18/18 History potassium chloride 10 meq PO DAILY PRN 02/12/18 07/18/18 History carvedilol 6.25 mg PO BID 04/06/18 07/18/18 History cholecalciferol (vitamin D3) 2,000 unit PO DAILY 04/06/18 07/19/18 History furosemide [Lasix] 20 mg PO BID PRN 04/06/18 07/18/18 History sacubitril-valsartan [Entresto] 1 tab PO BID 04/06/18 07/18/18 History multivitamin 1 tab PO DAILY 04/26/18 07/18/18 History diazepam [Valium] 1 tab PO DAILY 05/21/18 07/18/18 History lorazepam [Ativan] 1 mg PO DIRECTED PRN 05/24/18 07/18/18 History atorvastatin 20 mg PO QPM 07/18/18 07/18/18 History Exam Vital signs: Vital Signs 07/18/18 20:44 07/18/18 21:18 07/18/18 21:53 Temperature 98.7 F Pulse Rate 100 H 74 Respiratory Rate 20 17 Blood Pressure 146/63 H Pulse Oximetry 100 98 98 07/18/18 22:16 07/19/18 04:00 07/19/18 04:05 Temperature 97.0 F L Pulse Rate 68 72 Respiratory Rate 16 19 Blood Pressure 99/56 L 106/59 L Pulse Oximetry 97 95 97 07/19/18 04:46 Temperature Pulse Rate 72 Respiratory Rate Blood Pressure Pulse Oximetry Intake & Output 07/18/18 07/19/18 07/19/18 18:59 06:59 18:59 Output Total 30 / 30 Balance -30 / -30 Weight 63.8 kg Output: Urine 30 / 30 Other: Weight On Admission 63.8 kg Narrative: GENERAL: Well-developed, well-nourished patient in [facility]. SKIN: Warm and dry. No rash. HEAD: Normocephalic. Atraumatic. EYES: Pupils equal and round. No scleral icterus. No injection or drainage. ENT: No nasal bleeding or discharge. Mucous membranes pink and moist. NECK: Supple. Trachea midline. CARDIOVASCULAR: Regular rate and rhythm. S1, S2 noted. No murmur appreciated. RESPIRATORY: No accessory muscle use. Clear to auscultation. Breath sounds equal bilaterally. GASTROINTESTINAL: Abdomen soft, non-tender, nondistended. Normoactive bowel sounds x4. MUSCULOSKELETAL: No obvious deformities. Extremities without clubbing, cyanosis , or edema. NEUROLOGICAL: Awake and alert. No obvious cranial nerve deficits. Motor grossly within normal limits. 5/5 muscle strength in bilateral upper and lower extremities. Normal speech. PSYCHIATRIC: Appropriate mood and affect; insight and judgment normal. Results - Labs CBC & Chem 7: 07/18/18 21:47 07/18/18 21:47 Labs: Laboratory Results - last 24 hr 07/18/18 07/18/18 07/18/18 21:47 21:47 21:47 CBC w Diff Auto diff final WBC 6.1 RBC 4.18 Hgb 12.7 Hct 37.4 MCV 89.4 MCH 30.5 MCHC 34.0 RDW 13.1 Plt Count 177 MPV 9.8 Neut % (Auto) 70.9 H Lymph % (Auto) 18.2 Marion % (Auto) 7.5 Eos % (Auto) 2.6 Baso % (Auto) 0.8 Neut # (Auto) 4.2 Lymph # (Auto) 1.1 Marion # (Auto) 0.5 Eos # (Auto) 0.2 Baso # (Auto) 0.0 WBC Differential . Differential Comment . PT 10.8 INR 1.1 APTT 27.2 Sodium 136 Potassium 3.6 Chloride 100 Carbon Dioxide 28.6 Anion Gap 7 BUN 22 H Creatinine 1.20 H Estimated GFR 45 L Random Glucose 156 H Calcium 8.1 L Magnesium 2.2 Total Bilirubin 1.3 H AST 19 ALT 23 Alkaline Phosphatase 74 Total Creatine Kinase 43 Troponin I Less than 0.02 L Total Protein 6.4 Albumin 3.6 Lipase 127 Urine Color Urine Clarity Urine pH Ur Specific [place] Urine Protein Urine Glucose (UA) Urine Ketones Urine Occult Blood Urine Nitrate Urine Bilirubin Urine Urobilinogen Ur Leukocyte Esterase Urine WBC Ur Squamous Epith Cells Micro UA Comment Ur Microscopic Review Urine Culture Comments 07/18/18 07/18/18 07/19/18 23:10 23:30 02:33 CBC w Diff WBC RBC Hgb Hct MCV MCH MCHC RDW Plt Count MPV Neut % (Auto) Lymph % (Auto) Marion % (Auto) Eos % (Auto) Baso % (Auto) Neut # (Auto) Lymph # (Auto) Marion # (Auto) Eos # (Auto) Baso # (Auto) WBC Differential Differential Comment PT INR APTT Sodium Potassium Chloride Carbon Dioxide Anion Gap BUN Creatinine Estimated GFR Random Glucose Calcium Magnesium Total Bilirubin AST ALT Alkaline Phosphatase Total Creatine Kinase 40 Troponin I 0.03 0.02 Total Protein Albumin Lipase Urine Color Yellow Urine Clarity Clear Urine pH 6.0 Ur Specific [place] Less/equal 1.005 Urine Protein Negative Urine Glucose (UA) Negative Urine Ketones Negative Urine Occult Blood Negative Urine Nitrate Negative Urine Bilirubin Negative Urine Urobilinogen 0.2 Ur Leukocyte Esterase Negative Urine WBC 0-5 Ur Squamous Epith Cells 0-5 Micro UA Comment Culture not ind Ur Microscopic Review Microscopic reviewed Urine Culture Comments Culture not ind 07/19/18 04:15 CBC w Diff WBC RBC Hgb Hct MCV MCH MCHC RDW Plt Count MPV Neut % (Auto) Lymph % (Auto) Marion % (Auto) Eos % (Auto) Baso % (Auto) Neut # (Auto) Lymph # (Auto) Marion # (Auto) Eos # (Auto) Baso # (Auto) WBC Differential Differential Comment PT INR APTT Sodium Potassium Chloride Carbon Dioxide Anion Gap BUN Creatinine Estimated GFR Random Glucose Calcium Magnesium Total Bilirubin AST ALT Alkaline Phosphatase Total Creatine Kinase 50 Troponin I Less than 0.02 L Total Protein Albumin Lipase Urine Color Urine Clarity Urine pH Ur Specific [place] Urine Protein Urine Glucose (UA) Urine Ketones Urine Occult Blood Urine Nitrate Urine Bilirubin Urine Urobilinogen Ur Leukocyte Esterase Urine WBC Ur Squamous Epith Cells Micro UA Comment Ur Microscopic Review Urine Culture Comments - Imaging Impressions Chest X-Ray 07/18/18 21:15 CONCLUSION: No acute cardiopulmonary disease. Caprini VTE Risk Assessment Caprini VTE Risk Assessment: Moderate/High Risk (score >= 2) Caprini Risk Assessment Model: Point Value = 1 Point Value = 2 Point Value = 3 Point Value = 5 Age 41-60 Minor surgery BMI > 25 kg/m2 Swollen legs Varicose veins or History of unexplained or recurrent spontaneous Oral contraceptives or hormone replacement Sepsis (< 1 month) Serious lung disease, including pneumonia (< 1 month) Abnormal pulmonary function Acute myocardial infarction Congestive heart failure (< 1 month) History of inflammatory bowel disease Medical patient at bed rest Age 61-74 Arthroscopic surgery Major open surgery (> 45 min) Laparoscopic surgery (> 45 min) Malignancy Confined to bed (> 72 hours) Immobilizing plaster cast Central venous access Age >= 75 History of VTE Family history of VTE Factor V Leiden Prothrombin [id number] Lupus anticoagulant Anticardiolipin antibodies Elevated serum homocysteine Heparin-induced thrombocytopenia Other congenital or acquired thrombophilia Stroke (< 1 month) Elective arthroplasty Hip, pelvis, or leg fracture Acute spinal cord injury (< 1 month) Prophylaxis Regimen: Total Risk Factor Score Risk Level Prophylaxis Regimen 0-1 Low Early ambulation 2 Moderate Order ONE of the following: *Sequential Compression Device (SCD) *Heparin 5000 units SQ BID 3-4 Higher Order ONE of the following medications: *Heparin 5000 units SQ TID *Enoxaparin/Lovenox 40 mg SQ daily (WT < 150 kg, CrCl > 30 mL/min) *Enoxaparin/Lovenox 30 mg SQ daily (WT < 150 kg, CrCl > 10-29 mL/min) *Enoxaparin/Lovenox 30 mg SQ BID (WT < 150 kg, CrCl > 30 mL/min) AND/OR *Sequential Compression Device (SCD) 5 or more Highest Order ONE of the following medications: *Heparin 5000 units SQ TID (Preferred with Epidurals) *Enoxaparin/Lovenox 40 mg SQ daily (WT < 150 kg, CrCl > 30 mL/min) *Enoxaparin/Lovenox 30 mg SQ daily (WT < 150 kg, CrCl > 10-29 mL/min) *Enoxaparin/Lovenox 30 mg SQ BID (WT < 150 kg, CrCl > 30 mL/min) AND *Sequential Compression Device (SCD) Assessment and Plan - Assessment (1) Palpitations Code(s): R00.2 - Palpitations Status: Acute (2) Chest pain Code(s): R07.9 - Chest pain, unspecified Status: Acute (3) CHF (congestive heart failure) Code(s): I50.9 - Heart failure, unspecified Status: Acute - Plan This is a 63-year-old female patient who presented to the ED with Chest pain, atypical Hypertension, chronic Hyperlipidemia, chronic 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 -Serial EKGs and serial troponins have been ordered for ruling out ACS purposes. Troponin trend flat. -EKG reviewed, normal sinus rhythm with no ST changes to indicate any ischemia. -CBC and BMP reviewed, essentially unremarkable. UA negative. Will check BNP. -CXR reviewed, no acute cardiopulmonary disease noted. -Patient continued on cardiac telemetry, monitor for any arrhythmias. -Cardiology has been consulted, patient has a relatively complicated history including chemotherapy induced cardiomyopathy. Awaiting input and recommendations. -Patient denies ever having a stress test in the past, does have a concerning history including hyperlipidemia, hypertension, and cardiomyopathy. -Will continue home medications including Entresto, atorvastatin, Lasix, aspirin and carvedilol. -Supportive care. Anxiety -Patient will be continued on Ativan and Valium as prescribed at home. -[place] (RT[place]) database has been reviewed. History of breast cancer s/p chemo/radiation/lumpectomy -Supportive care. -Follow outpatient, PET scan planned for next week with Dr. Lindsey. DVT prophylaxis: SCDs.
[2018-07-19] MEDS: Carvedilol 6.25 MG Tablet PO SCH ×2 (08:23→21:15)
[2018-07-19] MEDS ORDERED: Furosemide 20 MG Tablet PO PRN (08:29)
[2018-07-19] MEDS ORDERED: diazePAM 5 MG Tablet PO SCH (09:00)
--- NOTE | 2018-07-19 10:59 | ECG ---
Date Performed: 07/19/2018 Time Performed: 04:05:58 PTAGE: 63 years EKG: Sinus rhythm non specific t wave abnormality Since the PREVIOUS TRACING , no significant change noted PREVIOUS TRACIN07/19/2018 01.28 DOCTOR: Bc Hyatt Interpretating Date/Time 07/19/2018 10:59:15
--- NOTE | 2018-07-19 10:59 | ECG ---
Date Performed: 07/18/2018 Time Performed: 21:53:11 PTAGE: 63 years EKG: Sinus rhythm Nonspecific t wave changes Since the PREVIOUS TRACING , no significant change noted PREVIOUS TRACIN05/24/2018 13.02 DOCTOR: Bc Hyatt Interpretating Date/Time 07/19/2018 10:58:25
--- NOTE | 2018-07-19 10:59 | ECG ---
Date Performed: 07/19/2018 Time Performed: 01:28:27 PTAGE: 63 years EKG: Sinus rhythm non specific t wave changes Since the PREVIOUS TRACING , no significant change noted PREVIOUS TRACIN07/18/2018 21.53 DOCTOR: Bc Hyatt Interpretating Date/Time 07/19/2018 10:58:50
--- NOTE | 2018-07-19 17:53 | MB ---
cc: Ray Steward MD DATE: 07/19/2018 REASON FOR CONSULTATION: Atypical chest pain. HISTORY OF PRESENT ILLNESS: The patient is a very pleasant 63-year-old woman with a history of a nonischemic cardiomyopathy as well as breast cancer and chemotherapy (which may be the cause of her cardiomyopathy). The patient describes a heart catheterization in the summer, which showed normal coronary arteries. She also has a defibrillator placed. The patient follows up followup with Dr. Gibson for her cardiomyopathy. She presents with fairly vague symptoms of jitteriness in her abdomen and general heaviness in her chest and head. The patient states she does not feel well most of the time, but this was in her general malaise though she admits that her symptoms were pretty vague and nonspecific. She has been ruled out for myocardial infarction and is generally feeling back to her baseline. PAST MEDICAL HISTORY: 1. Nonischemic cardiomyopathy. 2. Breast cancer, status post chemotherapy. 3. Chronic systolic congestive heart failure. CURRENT MEDICATIONS: 1. Aspirin 81 mg daily. 2. Lipitor 20 mg daily. 3. Coreg 6.25 mg b.i.d. 4. Lasix 20 mg IV daily. 5. Ativan. 6. Entresto / b.i.d. ALLERGIES: CEFACLOR. PHYSICAL EXAMINATION: VITAL SIGNS: Afebrile, pulse 97, respiratory rate 50, BP 105/55, saturating 98 on room air. GENERAL: A delightful woman in no distress. NECK: No JVD. LUNGS: Clear to auscultation bilaterally. CARDIOVASCULAR: Regular rate and rhythm. No murmurs appreciated. ABDOMEN: Benign. EXTREMITIES: No edema. LABORATORY DATA: Sodium 136, potassium 3.6, chloride 100, bicarbonate 28.6, BUN 22, creatinine 1.2, glucose 156. Cardiac enzymes are negative x4. BNP is 280. EKG shows sinus rhythm with nonspecific ST changes. IMPRESSION: 1. Chest discomfort. The patient's chest discomfort was very vague and resolved. She has had normal cardiac enzymes and apparently a normal catheterization earlier this year, so no further ischemic workup is warranted. 2. Chronic congestive heart failure. The patient perhaps in a mild congestive heart failure exacerbation, but now appears well compensated and her BNP was relatively low. I will resume her oral Lasix in the morning. I think if the patient remains asymptomatic, she could be discharged home in the morning to follow up with Dr. Gibson this next week. I will sign off at this time. Please call with any further questions. Thank you again the opportunity to participate in this patient's care. MD RAYNA Barajas/penelope , 04:33 PM , 04:40 PM
[2018-07-19] MEDS ORDERED: Acetaminophen/Codeine 300/30 MG Tablet PO PRN (18:11)
[2018-07-20 06:26] VITALS: RESP 20
[2018-07-20] MEDS: Carvedilol 6.25 MG Tablet PO SCH (08:17)
[2018-07-20] MEDS ORDERED: LORazepam 1 MG Tablet PO PRN (08:20)
[2018-07-20] MEDS ORDERED: Furosemide 20 MG Tablet PO SCH (09:00)
--- NOTE | 2018-07-20 09:32 | P.PNIM ---
Subjective Interval history: Follow-up chest discomfort. Patient seen and examined, lying in bed comfortably no apparent distress. Improved overnight. No acute events overnight. Cardiology and to see patient last evening, none of further recommendations. Will have patient follow-up with Dr. Gibson. We will continue Lasix daily until seen by project scientist. Encouraged low-sodium diet. Patient is stable at this time available clear. Physical Exam Vital signs: Vital Signs 07/19/18 12:00 07/19/18 16:00 07/19/18 20:00 Temperature 98.0 F 97.5 F L 97.4 F L Pulse Rate 97 H 98 H 87 Respiratory Rate 18 Blood Pressure 105/55 L 109/55 L 98/48 L Pulse Oximetry 98 96 98 07/19/18 22:58 07/20/18 00:00 07/20/18 04:00 Temperature 97.6 F 97.6 F 97.2 F L Pulse Rate 80 80 91 H Respiratory Rate 18 20 Blood Pressure 100/53 L 100/53 L 115/56 L Pulse Oximetry 95 95 97 07/20/18 08:00 Temperature Pulse Rate 81 Respiratory Rate Blood Pressure Pulse Oximetry 97 Intake & Output 07/19/18 07/20/18 07/20/18 18:59 06:59 18:59 Intake Total 480 / 480 Output Total 1550 / 1550 820 / 820 Balance -1070 / -1070 -820 / -820 Weight 63.8 kg Intake: Oral 480 / 480 Output: Urine 1550 / 1550 820 / 820 Other: Date of Last Bowel Movement 07/18/18 07/19/18 # Bowel Movements 0 Narrative: GENERAL: Well-developed, well-nourished patient in [place]. SKIN: Warm and dry. No rash. HEAD: Normocephalic. Atraumatic. EYES: Pupils equal and round. No scleral icterus. No injection or drainage. ENT: No nasal bleeding or discharge. Mucous membranes pink and moist. NECK: Supple. Trachea midline. CARDIOVASCULAR: Regular rate and rhythm. S1, S2 noted. No murmur appreciated. RESPIRATORY: No accessory muscle use. Clear to auscultation. Breath sounds equal bilaterally. GASTROINTESTINAL: Abdomen soft, non-tender, nondistended. Normoactive bowel sounds x4. MUSCULOSKELETAL: No obvious deformities. Extremities without clubbing, cyanosis , or edema. NEUROLOGICAL: Awake and alert. No obvious cranial nerve deficits. Motor grossly within normal limits. 5/5 muscle strength in bilateral upper and lower extremities. Normal speech. PSYCHIATRIC: Appropriate mood and affect; insight and judgment normal. Results - Labs CBC & Chem 7: 07/18/18 21:47 07/18/18 21:47 Laboratory Results - last 24 hr 07/19/18 10:47 B-Natriuretic Peptide 280 H Assessment and Plan - Assessment (1) Palpitations Code(s): R00.2 - Palpitations Status: Acute (2) Chest pain Code(s): R07.9 - Chest pain, unspecified Status: Acute (3) CHF (congestive heart failure) Code(s): I50.9 - Heart failure, unspecified Status: Acute - Plan This is a 63-year-old female patient who presented to the ED with Chest pain, atypical. Resolved. 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 -Serial EKGs and serial troponins have been ordered for ruling out ACS purposes. Troponin trend flat. -EKG reviewed, normal sinus rhythm with no ST changes to indicate any ischemia. -CBC and BMP reviewed, essentially unremarkable. UA negative. Will check BNP. -CXR reviewed, no acute cardiopulmonary disease noted. -Patient continued on cardiac telemetry, monitor for any arrhythmias. None noted. -Cardiology has been consulted, patient has a relatively complicated history including chemotherapy induced cardiomyopathy. Appreciate input recommendations. No further input. Follow-up with Dr. Gibson -Will continue home medications including Entresto, atorvastatin, Lasix, aspirin and carvedilol. Anxiety -Patient will be continued on Ativan and Valium as prescribed at home. -Prognosis [employer] database has been reviewed. History of breast cancer s/p chemo/radiation/lumpectomy -Supportive care. -Follow outpatient, PET scan planned for next week with Dr. Lindsey. SC home. Follow-up PCP in [place]. Healthy diet, low-sodium diet. Activity as tolerated. Rx is written.
[2018-07-20 10:06] VITALS: BP 121/59; PULSE 104; TEMP 98.2; O2SAT 95
== END 2018-07-20 11:16 | disposition home or self-care (01) ==
LOC: PHEDA 20:39 → PHED 20:39 → PH3 07-19 02:49
PROVIDERS: ADMIT Hospitalist; ATTEND Hospitalist
DX: M79.10 Myalgia, unspecified site; T45.1X5A Adverse effect of antineoplastic and immunosuppressive drugs, initial encounter; I50.22 Chronic systolic (congestive) heart failure; R00.2 Palpitations; Z79.899 Other long term (current) drug therapy; F41.9 Anxiety disorder, unspecified; I42.7 Cardiomyopathy due to drug and external agent; R68.83 Chills (without fever); I11.0 Hypertensive heart disease with heart failure; E78.5 Hyperlipidemia, unspecified; Z92.3 Personal history of irradiation; Z95.810 Presence of automatic (implantable) cardiac defibrillator; R06.02 Shortness of breath; Z85.3 Personal history of malignant neoplasm of breast; R11.0 Nausea; Z79.82 Long term (current) use of aspirin; R73.03 Prediabetes; Z86.73 Personal history of transient ischemic attack (TIA), and cerebral infarction without residual deficits